=== PATIENT | male | born 1995 | race Caucasian/White ===

== ENCOUNTER 2017-09-08 12:20 | Emergency (ER) | payer OTHER ==
[~2017-09-08] VITALS: Ht 167.6 cm; Wt 99.4 kg
[~2017-09-08 12:20] MED LIST: ATHENOL325 MG PO; MAGIC MOUTHWASH1 ML MM; NO HOME MEDS; NOHOMEMEDS; TESSALON PERLE100 MG PO; Vicodin,Lortab 5/500 PO
[2017-09-08 13:37] LABS: HEMATOCRIT 43.2 % (38.0-50.0); MCHC 35.2 G/DL (30.0-36.0); MCV 82.3 FL (86-99); MEAN PLAT.VOLUME 9.5 uM^3 (9.0-12.4); PLATELET COUNT 184 K/uL (156-360); RBC DIS.WIDTH-CV 11.9 % (11.8-14.6); RBC DIS.WIDTH-SD 35.3 % (39-53); RED BLOOD COUNT 5.25 M/uL (4.00-5.50); WHITE BLOOD COUNT 13.2 K/uL (4.1-10.2)
[2017-09-08 13:45] LABS: CHLORIDE 104 mEq/L (99-109); POTASSIUM 3.6 mEq/L (3.7-5.4); SODIUM 138 mEq/L (136-147)
[2017-09-08 13:47] LABS: GLUCOSE 109 mg/dL (70-99)
[2017-09-08 13:48] LABS: ANION GAP 9 MEQ/L (2-14)
[2017-09-08 13:49] LABS: TOTAL BILIRUBIN 0.6 mg/dL (0.0-1.0)
[2017-09-08 13:51] LABS: ALKALINE PHOSPHATASE 60 IU/L (3-129); GFR ESTIMATE (CALCULATED) > 59 mL/min/
[2017-09-08 13:52] LABS: UREA NITROGEN (BUN) 8 mg/dL (9-23)
[2017-09-08 14:31] LABS: ADD MIUA? YES; BILIRUBIN SMALL; BLOOD NEGATIVE; COLOR AMBER ((YELLOW)); GLUCOSE (STRIP) NEGATIVE; KETONES NEGATIVE; LEUKOCYTES NEGATIVE; NITRITE NEGATIVE; PROTEIN (STRIP) 100; SPECIFIC GRAVITY 1.032 (1.000-1.030); UROBILINOGEN 0.2 MG/DL (0.2-1.0)
[2017-09-08 14:39] LABS: BACTERIA RARE /HPF; EPITHELIAL CELLS NONE SEEN /HPF; MUCUS 4+ /LPF; RED BLOOD CELLS 0-5 /HPF (0-5); UCUL ADDED? NO; WHITE BLOOD CELLS 0-5 /HPF (0-5)
[2017-09-08] MEDS ORDERED: ZOFRAN ODT4 MG PO (14:49)
[2017-09-08 15:03] VITALS: BP 126/81
== END 2017-09-08 18:50 | disposition home or self-care (01) ==
LOC: EME 12:20
DX: R11.2 Nausea with vomiting, unspecified (principal); R19.7 Diarrhea, unspecified; R53.1 Weakness
CPT/HCPCS: 80053; 81003; 85027; 99281; 99283

== ENCOUNTER 2017-09-09 16:58 | Emergency (ER) | payer OTHER ==
[~2017-09-09] VITALS: Ht 167.6 cm; Wt 98.4 kg
[~2017-09-09 16:58] MED LIST changes: +ZOFRAN ODT4 MG PO
[2017-09-09 19:31] LABS: HEMATOCRIT 43.4 % (38.0-50.0); MCH 28.9 PG (29.0-34.0); MCHC 35.3 G/DL (30.0-36.0); MEAN PLAT.VOLUME 9.5 uM^3 (9.0-12.4); PLATELET COUNT 139 K/uL (156-360); RBC DIS.WIDTH-CV 12.1 % (11.8-14.6); RED BLOOD COUNT 5.29 M/uL (4.00-5.50); WHITE BLOOD COUNT 9.3 K/uL (4.1-10.2)
[2017-09-09 19:43] LABS: CHLORIDE 102 mEq/L (99-109); POTASSIUM 3.3 mEq/L (3.7-5.4); SODIUM 137 mEq/L (136-147)
[2017-09-09 19:45] LABS: GLUCOSE 94 mg/dL (70-99)
[2017-09-09 19:46] LABS: ANION GAP 9 MEQ/L (2-14)
[2017-09-09 19:47] LABS: TOTAL BILIRUBIN 1.1 mg/dL (0.0-1.0)
[2017-09-09 19:48] LABS: ALKALINE PHOSPHATASE 64 IU/L (3-129)
[2017-09-09 19:49] LABS: GFR ESTIMATE (CALCULATED) > 59 mL/min/
[2017-09-09 19:50] LABS: UREA NITROGEN (BUN) 9 mg/dL (9-23)
[2017-09-09 20:25] LABS: INFLUENZA A VIRAL ANTIGEN NEGATIVE; INFLUENZA B VIRAL ANTIGEN NEGATIVE
[2017-09-09 20:52] LABS: C DIFF TOXIN NEGATIVE (NEGATIVE)
[2017-09-09 20:55] LABS: PROBE CHECK PASS; SPECIMEN PROCESSING CONTROL PASS
[2017-09-09 21:38] VITALS: BP 126/74
== END 2017-09-09 21:38 | disposition home or self-care (01) ==
LOC: EME 16:58
PROVIDERS: Physician Assistant
DX: R19.7 Diarrhea, unspecified (principal); R11.2 Nausea with vomiting, unspecified; F17.200 Nicotine dependence, unspecified, uncomplicated
CPT/HCPCS: 80053; 81003; 85027; 87493; 87502; 99281; 99284

== ENCOUNTER 2017-09-10 22:24 | Emergency (ER) | payer OTHER ==
[~2017-09-10] VITALS: Ht 167.6 cm; Wt 97.7 kg
[2017-09-10 22:41] LABS: HEMATOCRIT 42.7 % (38.0-50.0); MCH 28.5 PG (29.0-34.0); MCHC 35.1 G/DL (30.0-36.0); MCV 81.2 FL (86-99); PLATELET COUNT 150 K/uL (156-360); RBC DIS.WIDTH-CV 12.1 % (11.8-14.6); RBC DIS.WIDTH-SD 35.5 % (39-53); RED BLOOD COUNT 5.26 M/uL (4.00-5.50); WHITE BLOOD COUNT 10.8 K/uL (4.1-10.2)
[2017-09-10 22:56] LABS: CHLORIDE 100 mEq/L (99-109); POTASSIUM 3.6 mEq/L (3.7-5.4); SODIUM 138 mEq/L (136-147)
[2017-09-10 22:58] LABS: GLUCOSE 102 mg/dL (70-99)
[2017-09-10 22:59] LABS: ANION GAP 13 MEQ/L (2-14)
[2017-09-10 23:00] LABS: TOTAL BILIRUBIN 0.9 mg/dL (0.0-1.0)
[2017-09-10 23:01] LABS: ALKALINE PHOSPHATASE 63 IU/L (3-129)
[2017-09-10 23:02] LABS: GFR ESTIMATE (CALCULATED) > 59 mL/min/
[2017-09-10 23:03] LABS: UREA NITROGEN (BUN) 11 mg/dL (9-23)
[2017-09-11 00:36] LABS: ADD MIUA? NO; BILIRUBIN NEGATIVE; BLOOD NEGATIVE; COLOR YELLOW ((YELLOW)); GLUCOSE (STRIP) NEGATIVE; KETONES NEGATIVE; LEUKOCYTES NEGATIVE; NITRITE NEGATIVE; PROTEIN (STRIP) NEGATIVE; UCUL ADDED? NO; UROBILINOGEN 0.2 MG/DL (0.2-1.0)
[2017-09-11 00:53] LABS: SPECIFIC GRAVITY 1.051 (1.000-1.030)
[2017-09-11] MEDS ORDERED: CIPRO500 MG PO (01:06)
[2017-09-11 01:13] VITALS: BP 128/70
== END 2017-09-11 01:15 | disposition home or self-care (01) ==
LOC: EME 22:24
DX: R19.7 Diarrhea, unspecified (principal); Z02.79 Encounter for issue of other medical certificate; F17.200 Nicotine dependence, unspecified, uncomplicated
CPT/HCPCS: 74177; 80053; 81003; 85027; 99281; 99284; J2405; J7030